=== PATIENT | female | born 1990 | race Caucasian/White ===

== ENCOUNTER 2018-12-27 08:42 | Emergency (ER) | payer OTHER ==
[~2018-12-27] VITALS: Ht 162.6 cm; Wt 65.8 kg
--- NOTE | 2018-12-27 09:16 | PHYS DOC ---
Past Medical History Past Medical History: No Pertinent History Past Surgical History: No Surgical History Alcohol Use: None Drug Use: None Adult General Chief Complaint Chief Complaint: OTHER COMPLAINTS HPI HPI 28-year-old female presents to ER via POV with concerns for as she has taken multiple home tests which were positive. Patient states she has had a tubal ligation in 2014 however and 2017 she had intermittent an ectopic preg. which due to complications terminated and she was given methotrexate 2. Patient denies having D&C and following that . Patient's LMP was october. She reports she has had bilateral breast tenderness denying discharge as well as intermittent nausea and vomiting. Patient denies being on control. She denies any urinary or vaginal symptoms- denies concerns for STDs. Patient reports she is 6 para 4 without including this possible preg desiree. She denies any abdominal pain, fever, Review of Systems Review of Systems Constitutional: Denies fever or chills [] Eyes: Denies change in visual acuity, redness, or eye pain [] HENT: Denies nasal congestion or sore throat [] Respiratory: Denies cough or shortness of breath [] Cardiovascular: No additional information not addressed in HPI [] GI: Denies abdominal pain, bloody stools or diarrhea. Reports intermittent N/V : Denies urinary or vaginal sxs Musculoskeletal: Denies back pain or joint pain [] Integument: Denies rash or skin lesions [] Neurologic: Denies headache, focal weakness or sensory changes [] All other systems were reviewed and found to be within normal limits, except as documented in this note. Allergies Allergies Allergies Coded Allergies Type Severity Reaction Last Updated Verified No Known Drug Allergies 09/21/13 No Physical Exam Physical Exam Constitutional: Well developed, well nourished, no acute distress, non-toxic appearance. [] HENT: Normocephalic, atraumatic, oropharynx moist, nose normal. [] Eyes: Pupils equal, conjunctiva normal, no discharge. [] Neck: Normal range of motion, supple, no stridor. [] Cardiovascular: Heart rate regular rhythm, no murmur [] Lungs & Thorax: Bilateral breath sounds clear to auscultation. Resp. equal/nonlabored Abdomen: Bowel sounds normal, soft- no distention or rigidity, no tenderness, no masses, no pulsatile masses. [] Skin: Warm, dry, no erythema, no rash. [] Back: No tenderness, no CVA tenderness. [] Neurologic: Alert and oriented X 3, normal motor function, normal sensory function, no focal deficits noted. [] Psychologic: Affect normal, judgement normal, mood normal. [] Current Patient Data Vital Signs Vital Signs Date Time Temp Pulse Resp B/P (MAP) Pulse Ox O2 Delivery O2 Flow Rate FiO2 12/27/18 13:00 75 16 128/64 (85) 99 Room Air 12/27/18 08:49 98.3 98.3 Lab Values Laboratory Tests Test 12/27/18 08:49 12/27/18 10:15 Urine Collection Type Unknown Urine Color Yellow Urine Clarity Clear Urine pH 5.5 Urine Specific [place] 1.025 Urine Protein Negative mg/dL (NEG-TRACE) Urine Glucose (UA) Negative mg/dL (NEG) Urine Ketones (Stick) Negative mg/dL (NEG) Urine Blood Trace (NEG) Urine Nitrite Negative (NEG) Urine Bilirubin Negative (NEG) Urine Urobilinogen Dipstick 0.2 mg/dL (0.2 mg/dL) Urine Leukocyte Esterase Negative (NEG) Urine RBC 1-2 /HPF (0-2) Urine WBC 5-10 /HPF (0-4) Urine Squamous Epithelial Cells Mod /LPF Urine Bacteria Moderate /HPF (0-FEW) Urine Mucus Mod /LPF White Blood Count 6.4 x10^3/uL (4.0-11.0) Red Blood Count 4.37 x10^6/uL (3.50-5.40) Hemoglobin 14.8 g/dL (12.0-15.5) Hematocrit 43.8 % (36.0-47.0) Mean Corpuscular Volume 100 fL (79-100) Mean Corpuscular Hemoglobin 34 pg (25-35) Mean Corpuscular Hemoglobin Concent 34 g/dL (31-37) Red Cell Distribution Width 12.6 % (11.5-14.5) Platelet Count 192 x10^3/uL (140-400) Neutrophils (%) (Auto) 58 % (31-73) Lymphocytes (%) (Auto) 34 % (24-48) Monocytes (%) (Auto) 6 % (0-9) Eosinophils (%) (Auto) 2 % (0-3) Basophils (%) (Auto) 0 % (0-3) Neutrophils # (Auto) 3.7 x10^3uL (1.8-7.7) Lymphocytes # (Auto) 2.2 x10^3/uL (1.0-4.8) Monocytes # (Auto) 0.4 x10^3/uL (0.0-1.1) Eosinophils # (Auto) 0.1 x10^3/uL (0.0-0.7) Basophils # (Auto) 0.0 x10^3/uL (0.0-0.2) Maternal Serum HCG Beta Subunit 29 mIU/mL (0-5) H Sodium Level 140 mmol/L (136-145) Potassium Level 4.2 mmol/L (3.5-5.1) Chloride Level 105 mmol/L (98-107) Carbon Dioxide Level 28 mmol/L (21-32) Anion Gap 7 (6-14) Blood Urea Nitrogen 9 mg/dL (7-20) Creatinine 0.6 mg/dL (0.6-1.0) Estimated GFR (Cockcroft-Gault) 119.0 Glucose Level 100 mg/dL (70-99) H Calcium Level 9.0 mg/dL (8.5-10.1) Laboratory Tests 12/27/18 10:15 Laboratory Tests 12/27/18 10:15 Microbiology 12/27/18 Urine Culture - Final, Complete 12/27/18 Urine Culture Result 1 (OMAYRA) - Final, Complete EKG EKG [] Radiology/Procedures Radiology/Procedures []PROCEDURE: OB < 14 WKS Obstetrical ultrasound, 12/27/2018: HISTORY: Positive test, previous tubal ligation Transabdominal and transvaginal scans were obtained. The uterus measures 8.8 x 5.6 x 4.7 cm. There are 2 small adjacent fluid collections in the central uterine cavity. One of these is rounded and measures 5 mm in diameter and demonstrates an echogenic rim. This may be a very early gestational sac of approximately 5 weeks gestational age. There is an adjacent small elongated fluid collection measuring 4 x 10 mm. The uterus is otherwise unremarkable. The ovaries are of normal size. There are a couple of subcentimeter follicular cysts in the left ovary. There is a small predominantly cystic structure in the right adnexa along the posterior aspect of the ovary. It measures approximately 2 cm in greatest diameter. There is a 7 mm echogenic structure along its inner wall. The appearance raises the possibility of an ectopic , although no cardiac activity is seen within this echogenic structure. The rim of this cystic process is not hypervascular. The adnexal regions are otherwise unremarkable. No free fluid is evident in the pelvis. IMPRESSION: 1. Small fluid collections in the central uterine cavity raising the possibility of an early IUP with minimal adjacent subchorionic hemorrhage. A pseudogestational sac related to an ectopic cannot be excluded. 2. Small complex cystic structure adjacent to the right ovary with diagnostic considerations including an ectopic or complicated exophytic ovarian cyst. Sonographic follow-up and correlation with serial hCG titers is suggested. Electronically signed by: Jamal Brooks MD (12/27/2018 1:06 PM) [facility] DICTATED and SIGNED BY: JAMAL BROOKS MD DATE: 12/27/18 1306 Course & Med Decision Making Course & Med Decision Making Pertinent Labs and Imaging studies reviewed. (See chart for details) 1326: Spoke with Dr. Reeder, director of early childhood education lamination operator and discussed patient's case and test results- discussed ultrasound report and he is wanting patient to be seen at his clinic on for repeat hCG Quant level as today's level is 29. This phone call was discussed with patient along with test results. She continues to deny any abdominal pain or vaginal discharge/reading. Patient had original appointment scheduled for 11/22. Advised patient she would need to be seen in 48 hours for the repeat lab and further evaluation by LIQUEFACTION SUPERVISOR. At time of discussion pt was in no distress- she was anxious as her husb. and child have been in [facility] waiting for her to be discharged. Went to pt's room to discuss phone call further with pt along with discharge instructions and pt was not in her room and was not located in [facility]. Attempts to call phone numbers in pt's demographic info were not working numbers. Pt left ER without discharge paperwork. Dragon Disclaimer Dragon Disclaimer This electronic medical record was generated, in whole or in part, using a voice recognition dictation system. Departure Departure Impression: Primary Impression: Additional Impression: Ectopic Disposition: HOME, SELF-CARE Condition: STABLE Referrals: KIKI REEDER Jr, MD (PCP) Patient Instructions: Ectopic Additional Instructions: As discussed it is a concern that you have an ectopic . Your hCG quantitative level was 29. You should be seen in Dr. Reeder's office on for recheck of your HCG quantitative level. Return to Emergency Department with any concerns. Problem Qualifiers AGA ALLEN APRN Dec 27, 2018 09:16
[2018-12-27 09:21] LABS: BILIRUBIN,URINE NEGATIVE (NEG); CLARITY,URINE CLEAR; COLOR,URINE YELLOW; NITRITE,URINE NEGATIVE (NEG); PH,URINE 5.5; PROTEIN,URINE NEGATIVE (NEG-TRACE); UROBILINOGEN,URINE 0.2 mg/dL (0.2 mg/dL)
[2018-12-27 09:37] LABS: SQUAMOUS EPITHELIAL CELL,UR MOD /LPF
[2018-12-27 09:38] LABS: BACTERIA,URINE MODERATE /HPF (0-FEW)
[2018-12-27 10:31] LABS: BASO % 0 % (0-3); EOS # 0.1 x10^3/uL (0.0-0.7); EOS % 2 % (0-3); HEMATOCRIT 43.8 % (36.0-47.0); HEMOGLOBIN 14.8 g/dL (12.0-15.5); LYMPH # 2.2 x10^3/uL (1.0-4.8); LYMPH % 34 % (24-48); MEAN CORPUSCULAR HEMOGLOBIN 34 pg (25-35); MEAN CORPUSCULAR HGB CONC 34 g/dL (31-37); MEAN CORPUSCULAR VOLUME 100 fL (79-100); MONO # 0.4 x10^3/uL (0.0-1.1); MONO % 6 % (0-9); NEUT # 3.7 x10^3uL (1.8-7.7); NEUT % 58 % (31-73); PLATELET COUNT 192 x10^3/uL (140-400); RED BLOOD COUNT 4.37 x10^6/uL (3.50-5.40); RED CELL DISTRIBUTION WIDTH 12.6 % (11.5-14.5); WHITE BLOOD COUNT 6.4 x10^3/uL (4.0-11.0)
[2018-12-27 10:37] LABS: CREATININE 0.6 mg/dL (0.6-1.0); POTASSIUM 4.2 mmol/L (3.5-5.1)
[2018-12-27 13:00] VITALS: BP 128/64
--- NOTE | 2018-12-27 13:09 | RAD ---
Obstetrical ultrasound, 12/27/2018: HISTORY: Positive test, previous tubal ligation Transabdominal and transvaginal scans were obtained. The uterus measures 8.8 x 5.6 x 4.7 cm. There are 2 small adjacent fluid collections in the central uterine cavity. One of these is rounded and measures 5 mm in diameter and demonstrates an echogenic rim. This may be a very early gestational sac of approximately 5 weeks gestational age. There is an adjacent small elongated fluid collection measuring 4 x 10 mm. The uterus is otherwise unremarkable. The ovaries are of normal size. There are a couple of subcentimeter follicular cysts in the left ovary. There is a small predominantly cystic structure in the right adnexa along the posterior aspect of the ovary. It measures approximately 2 cm in greatest diameter. There is a 7 mm echogenic structure along its inner wall. The appearance raises the possibility of an ectopic , although no cardiac activity is seen within this echogenic structure. The rim of this cystic process is not hypervascular. The adnexal regions are otherwise unremarkable. No free fluid is evident in the pelvis. IMPRESSION: 1. Small fluid collections in the central uterine cavity raising the possibility of an early IUP with minimal adjacent subchorionic hemorrhage. A pseudogestational sac related to an ectopic cannot be excluded. 2. Small complex cystic structure adjacent to the right ovary with diagnostic considerations including an ectopic or complicated exophytic ovarian cyst. Sonographic follow-up and correlation with serial hCG titers is suggested. Electronically signed by: Jamal Brooks MD (12/27/2018 1:06 PM) [facility] [place]
== END 2018-12-27 14:01 | disposition home or self-care (01) ==
LOC: ER 08:42
DX: O00.90 Unspecified ectopic pregnancy without intrauterine pregnancy (principal); O34.81 Maternal care for other abnormalities of pelvic organs, first trimester; N83.291 Other ovarian cyst, right side; N83.292 Other ovarian cyst, left side; Z98.51 Tubal ligation status; Z3A.01 Less than 8 weeks gestation of pregnancy
CPT/HCPCS: 36415; 76801; 80048; 81001; 84702; 85025; 87086; 99284-25

== ENCOUNTER 2019-01-04 10:43 | Emergency (ER) | payer OTHER ==
[~2019-01-04] VITALS: Ht 162.6 cm; Wt 61.2 kg
[2019-01-04 11:25] LABS: BILIRUBIN,URINE NEGATIVE (NEG); CLARITY,URINE CLEAR; COLOR,URINE YELLOW; NITRITE,URINE NEGATIVE (NEG); PROTEIN,URINE NEGATIVE (NEG-TRACE)
[2019-01-04 11:27] LABS: SQUAMOUS EPITHELIAL CELL,UR MANY /LPF
[2019-01-04 11:28] LABS: BACTERIA,URINE FEW /HPF (0-FEW); RBC,URINE OCC /HPF (0-2); WBC,URINE OCC /HPF (0-4)
--- NOTE | 2019-01-04 11:54 | PHYS DOC ---
Past Medical History Past Medical History: No Pertinent History, Other Additional Past Medical Histor: ectopic (MUTUNGA,PATIENCE TENNIS COACH) Past Surgical History: Tubal ligation (MUTUNGA,PATIENCE TENNIS COACH) Alcohol Use: Occasionally Drug Use: None (MUTUNGA,PATIENCE TENNIS COACH) Adult General Chief Complaint Chief Complaint: ABDOMINAL PAIN IN HPI HPI Patient is a 28 year old female 7 para 4, (1 miscarriage, 1 ectopic ), who presents to the ED today complaining of 5 out of 10 right lower quadrant abdominal pain for 2 days. Patient describes the pain like a sensation she is having a menstrual cycle. Denies any vaginal bleeding. She states her last menstrual cycle was sometimes at the end of October, she states she's done multiple test and they were positive, she states she's had a tubal ligation with rings that were used to tie her tubes. She states she's been before with her tubes tied though she states she has been informed her right ring moved up and is no longer tying her tubes well. She states she was seen in the ED on December 27, 2018 but did not wait for her results, she states she checked on the patient portal and it showed she was with her tubes tied and there were concerns for ectopic . She states she followed up with Dr. Reeder today and was sent to the ED to get a pelvic ultrasound and a beta hCG. I spoke with Dr. Reeder he, states patient he saw patient yesterday in the clinic, he states patient had a beta hCG of 29 on December 27 2018 when she was seen in the ED. He states it went up to 66. He states he had already talked to patient and requested her to come weekly for beta hCG checks, he states was also planning to do follow-up pelvic ultrasounds as well. He states typically with this condition of possible ectopic or maybe intrauterine they have to monitor the beta hCGs to see if they get anywhere close to [id number] and he rule out a chance there could be an IUP before they do anything area Patient is in no distress, when I went to evaluate her she was actually talking and laughing on the phone. She states she is concerned she has an ectopic and no one is doing anything to fix it. Patient herself states Dr. Reeder is not doing this right. She states the last time she had an ectopic they did beta-hCG is for 4 days and after that they can give her some methotrexate. Informed patient we in the hospital have to follow recommendation by the BLUE LINE TRIMMER. Today's Beta Hcg 230, + urine hcg. HCT and HBG are normal Please see Ultrasound results which were discussed with Dr. Reeder. He requested she gets discharged and f/u with him in 1 week for beta hcg because we can not r/o if this is ectopic or IUP or both. (PATIENCE PATEL APRN) Review of Systems Review of Systems Constitutional: Denies fever or chills [] Eyes: Denies change in visual acuity, redness, or eye pain [] HENT: Denies nasal congestion or sore throat [] Respiratory: Denies cough or shortness of breath [] Cardiovascular: No additional information not addressed in HPI [] GI: Reports right lower quadrant abdominal pain, reports positive test , denies nausea, vomiting, bloody stools or diarrhea, denies vaginal bleeding[] : Denies dysuria or hematuria [] Musculoskeletal: Denies back pain or joint pain [] Integument: Denies rash or skin lesions [] Neurologic: Denies headache, focal weakness or sensory changes [] All other systems were reviewed and found to be within normal limits, except as documented in this note. (PATIENCE PATEL APRN) Allergies Allergies Allergies Coded Allergies Type Severity Reaction Last Updated Verified No Known Drug Allergies 09/21/13 No (OSCAR MARTINEZ MD) Physical Exam Physical Exam Constitutional: Well developed, well nourished, no acute distress, non-toxic appearance. [] HENT: Normocephalic, atraumatic, bilateral external ears normal, oropharynx moist, no oral exudates, nose normal. [] Eyes: PERRLA, EOMI, conjunctiva normal, no discharge. [] Neck: Normal range of motion, no tenderness, supple, no stridor. [] Cardiovascular:Heart rate regular rhythm, no murmur [] Lungs & Thorax: Bilateral breath sounds clear to auscultation [] Abdomen: Bowel sounds normal, soft, no tenderness, no masses, no pulsatile masses. [] Pelvic exam External pelvic appears normal, cervix edition loss, closed, no CMT, slight right adnexal tenderness during exam, no bleeding, small amount of white discharge in the vaginal vault. Skin: Warm, dry, no erythema, no rash. [] Back: No tenderness, no CVA tenderness. [] Extremities: No tenderness, no cyanosis, no clubbing, ROM intact, no edema. [] Neurologic: Alert and oriented X 3, normal motor function, normal sensory function, no focal deficits noted. [] Psychologic: Affect normal, judgement normal, mood normal. [] (PATIENCE PATEL APRN) Current Patient Data Vital Signs Vital Signs Date Time Temp Pulse Resp B/P (MAP) Pulse Ox O2 Delivery O2 Flow Rate FiO2 01/04/19 13:30 82 15 106/63 (77) 99 Room Air 01/04/19 11:03 98.1 98.1 (OSCAR MARTINEZ MD) Lab Values Laboratory Tests Test 01/04/19 10:48 01/04/19 11:05 01/04/19 11:49 Urine Collection Type Unknown Urine Color Yellow Urine Clarity Clear Urine pH 7.0 Urine Specific [place] 1.015 Urine Protein Negative mg/dL (NEG-TRACE) Urine Glucose (UA) Negative mg/dL (NEG) Urine Ketones (Stick) Negative mg/dL (NEG) Urine Blood Negative (NEG) Urine Nitrite Negative (NEG) Urine Bilirubin Negative (NEG) Urine Urobilinogen Dipstick 1.0 mg/dL (0.2 mg/dL) Urine Leukocyte Esterase Negative (NEG) Urine RBC Occ /HPF (0-2) Urine WBC Occ /HPF (0-4) Urine Squamous Epithelial Cells Many /LPF Urine Bacteria Few /HPF (0-FEW) Urine Mucus Marked /LPF POC Urine HCG, Qualitative Hcg positive (Negative) White Blood Count 5.1 x10^3/uL (4.0-11.0) Red Blood Count 4.10 x10^6/uL (3.50-5.40) Hemoglobin 13.9 g/dL (12.0-15.5) Hematocrit 40.5 % (36.0-47.0) Mean Corpuscular Volume 99 fL (79-100) Mean Corpuscular Hemoglobin 34 pg (25-35) Mean Corpuscular Hemoglobin Concent 34 g/dL (31-37) Red Cell Distribution Width 12.2 % (11.5-14.5) Platelet Count 177 x10^3/uL (140-400) Neutrophils (%) (Auto) 43 % (31-73) Lymphocytes (%) (Auto) 48 % (24-48) Monocytes (%) (Auto) 6 % (0-9) Eosinophils (%) (Auto) 3 % (0-3) Basophils (%) (Auto) 0 % (0-3) Neutrophils # (Auto) 2.2 x10^3uL (1.8-7.7) Lymphocytes # (Auto) 2.4 x10^3/uL (1.0-4.8) Monocytes # (Auto) 0.3 x10^3/uL (0.0-1.1) Eosinophils # (Auto) 0.1 x10^3/uL (0.0-0.7) Basophils # (Auto) 0.0 x10^3/uL (0.0-0.2) Maternal Serum HCG Beta Subunit 280 mIU/mL (0-5) H Laboratory Tests 01/04/19 11:49 (OSCAR MARTINEZ MD) EKG EKG [] (PATIENCE PATEL APRN) Radiology/Procedures Radiology/Procedures []PROCEDURE: OB <14 WKS W/TV OB <14 WKS W/TV History: Right abdominal pain, possible ectopic Comparison: December 27, 2018 Findings: Multiple transabdominal sonographic images of the pelvis are submitted. Uterus measured 8.6 x 4.6 cm x 6.8 cm. Ovaries are poorly distinguished. Transvaginal ultrasound: Multiple transvaginal sonographic images of pelvis are submitted. There is a small focus of hypoechogenicity of the uterus about 0.6 x 0.8 x 0.6 cm. Another previously seen small focus of hypoechogenicity of the uterus is not demonstrated on this exam. Left ovary measured 2 x 2.4 x 1.7 cm with normal low resistance vascularity. Right ovary measured 3.4 x 2 x 2.5 cm with normal low resistance vascularity. There is again focus of different echogenicity of the right ovary up to about 1.6 x 1.5 x 1.8 cm, smaller area of central hypoechogenicity. This is associated with some associated vascularity on color Doppler imaging. There is again another focus of hypoechogenicity adjacent to the right ovary, central area of hyperechogenicity with a somewhat longitudinal orientation, about 0.66 cm length. There is no demonstrable cardiac activity if this is a pole. Overall dimension of this area of primarily hypoechoic lesion is about 2.1 x 1.7 x 2.1 cm, previous maximal dimension about 1.6 x 1.7 x 1.9 cm. There is mild free fluid in the posterior cul-de-sac and extending to the right adnexal region. Impression: 1. There is again hypoechoic lesion adjacent to the right ovary with ectopic in the differential considerations, measures somewhat larger than previously, internal linear focus of echogenicity which could be a pole although there is no demonstrable cardiac activity if this is indeed a pole. Focus of echogenicity could be nonspecific debris. There is minimal free fluid in the right adnexal region and posterior cul-de-sac. There is another focus of different echogenicity of the right ovary which may be a corpus luteal cyst. There is again small focus of hypoechogenicity of the uterus, although not significantly larger as would be expected if this is indeed a small gestational sac. One of the previously seen small foci of hypoechogenicity of the uterus is not demonstrated on this exam. Electronically signed by: Bin Rivera MD (01/04/2019 2:05 PM) [id number] DICTATED and SIGNED BY: BIN RIVERA MD DATE: 01/04/19 4112 (PATIENCE PATEL APRN) Course & Med Decision Making Course & Med Decision Making Pertinent Labs and Imaging studies reviewed. (See chart for details) See history of present illness (PATIENCE PATEL APRN) Course & Med Decision Making Staff Physician Addendum: I was working in the ER during the course of this patient's visit. I was available for consultation as needed, but I was not directly involved in the care of this patient. (OSCAR MARTINEZ MD) Dragon Disclaimer Dragon Disclaimer This electronic medical record was generated, in whole or in part, using a voice recognition dictation system. (PATIENCE PATEL APRN) Departure Departure Impression: Primary Impression: Abdominal pain affecting Additional Impression: Ectopic Disposition: 01 HOME, SELF-CARE Condition: STABLE Referrals: KIKI REEDER Jr, MD (PCP) Please follow up with him in 1 week for Beta HCG Patient Instructions: Abdominal Pain During Additional Instructions: You were seen for abdominal pain. Your Beta HCG is 280, as discussed please follow up with Dr. Reeder in 1 week for Beta HCG. Please return to the Ed if symptoms worsen Problem Qualifiers Additional Impression: Ectopic Location of ectopic : unspecified location Intrauterine status: unspecified Qualified Codes: O00.90 - Unspecified ectopic without intrauterine PATIENCE PATEL APRN Jan 04, 2019 11:54 OSCAR MARTINEZ MD Jan 06, 2019 10:44
[2019-01-04 12:01] LABS: BASO % 0 % (0-3); EOS # 0.1 x10^3/uL (0.0-0.7); EOS % 3 % (0-3); HEMATOCRIT 40.5 % (36.0-47.0); HEMOGLOBIN 13.9 g/dL (12.0-15.5); LYMPH # 2.4 x10^3/uL (1.0-4.8); LYMPH % 48 % (24-48); MEAN CORPUSCULAR HEMOGLOBIN 34 pg (25-35); MEAN CORPUSCULAR HGB CONC 34 g/dL (31-37); MEAN CORPUSCULAR VOLUME 99 fL (79-100); MONO # 0.3 x10^3/uL (0.0-1.1); MONO % 6 % (0-9); NEUT # 2.2 x10^3uL (1.8-7.7); NEUT % 43 % (31-73); PLATELET COUNT 177 x10^3/uL (140-400); RED CELL DISTRIBUTION WIDTH 12.2 % (11.5-14.5); WHITE BLOOD COUNT 5.1 x10^3/uL (4.0-11.0)
[2019-01-04 13:30] VITALS: BP 106/63
--- NOTE | 2019-01-04 14:07 | RAD ---
OB <14 WKS W/TV History: Right abdominal pain, possible ectopic Comparison: December 27, 2018 Findings: Multiple transabdominal sonographic images of the pelvis are submitted. Uterus measured 8.6 x 4.6 cm x 6.8 cm. Ovaries are poorly distinguished. Transvaginal ultrasound: Multiple transvaginal sonographic images of pelvis are submitted. There is a small focus of hypoechogenicity of the uterus about 0.6 x 0.8 x 0.6 cm. Another previously seen small focus of hypoechogenicity of the uterus is not demonstrated on this exam. Left ovary measured 2 x 2.4 x 1.7 cm with normal low resistance vascularity. Right ovary measured 3.4 x 2 x 2.5 cm with normal low resistance vascularity. There is again focus of different echogenicity of the right ovary up to about 1.6 x 1.5 x 1.8 cm, smaller area of central hypoechogenicity. This is associated with some associated vascularity on color Doppler imaging. There is again another focus of hypoechogenicity adjacent to the right ovary, central area of hyperechogenicity with a somewhat longitudinal orientation, about 0.66 cm length. There is no demonstrable cardiac activity if this is a pole. Overall dimension of this area of primarily hypoechoic lesion is about 2.1 x 1.7 x 2.1 cm, previous maximal dimension about 1.6 x 1.7 x 1.9 cm. There is mild free fluid in the posterior cul-de-sac and extending to the right adnexal region. Impression: 1. There is again hypoechoic lesion adjacent to the right ovary with ectopic in the differential considerations, measures somewhat larger than previously, internal linear focus of echogenicity which could be a pole although there is no demonstrable cardiac activity if this is indeed a pole. Focus of echogenicity could be nonspecific debris. There is minimal free fluid in the right adnexal region and posterior cul-de-sac. There is another focus of different echogenicity of the right ovary which may be a corpus luteal cyst. There is again small focus of hypoechogenicity of the uterus, although not significantly larger as would be expected if this is indeed a small gestational sac. One of the previously seen small foci of hypoechogenicity of the uterus is not demonstrated on this exam. Electronically signed by: Darius Barillas MD (01/04/2019 2:05 PM) [id number]
== END 2019-01-04 14:40 | disposition home or self-care (01) ==
LOC: ER 10:43
DX: O00.90 Unspecified ectopic pregnancy without intrauterine pregnancy (principal); R10.31 Right lower quadrant pain; Z98.51 Tubal ligation status
CPT/HCPCS: 36415; 76801; 76817; 81001; 81025; 84702; 85025; 99284-25

== ENCOUNTER 2019-01-09 13:19 | Emergency (ER) | payer OTHER ==
[~2019-01-09] VITALS: Ht 162.6 cm; Wt 61.2 kg
[2019-01-09] MEDS ORDERED: ONDANSETRON PF 4 MG/2 ML VIAL. IV ONE (13:45)
[2019-01-09] MEDS ORDERED: IV NORMAL SALINE 1000ML BAG 1,000 ML IV ONE (13:45)
[2019-01-09] MEDS ORDERED: ACETAMINOPHEN 500 MG TABLET PO ONE (13:45)
--- NOTE | 2019-01-09 13:53 | PHYS DOC ---
Past Medical History Past Medical History: No Pertinent History Additional Past Medical Histor: ectopic Past Surgical History: Tubal ligation Alcohol Use: None Drug Use: None Adult General Chief Complaint Chief Complaint: VAGINAL BLEEDING HPI HPI Patient is a 28 year old female 7 para 4, (1 miscarriage, 1 ectopic ), who presents to the ED today complaining of vaginal bleeding and abdominal cramping that began early this morning. She states it began as spotting and went into a light bleeding notably when she wipes herself. She states her last menstrual cycle was sometimes at the end of October, she states she's done multiple test and they were positive, she states she's had a tubal ligation with rings that were used to tie her tubes but one of them moved and currently open. She states she's been before because of this open tube. She states insurance will not pay for another tubal ligation. She follows up with Dr. Reeder who i had spoken to on 01/04/2019 and he requested patient to have a repeat beta hcg in a week. He stated typically with this condition of possible ectopic or maybe intrauterine they have to monitor the beta hCGs to see if they get anywhere close to [id number] and then rule out a chance there could be an IUP before they decide what to do. Beta hCG 571 up from 280 on 01/04/2019. CBC CMP with no acute findings. UA with no infection. Blood group B+ OB ultrasound results -There is a persistent focus of abnormal hypoechogenicity with internal area of hyperechogenicity adjacent to the right ovary suspicious for sequela of ectopic given persistence, no demonstrable cardiac activity if the focus of echogenicity internally represents a pole. Previously demonstrated hypoechoic lesion of the uterus is no longer visualized. There is minimal free fluid eccentric to the right adnexal region. Called Dr. Reeder he states he is coming to take patient to surgery. I went to talk to patient and let her know she will be going to surgery today. The chest as to argue stating the last time she had a similar issue she was given methotrexate. Informed patient she can talk to Dr. Reeder about this but he is planning on surgery. Dr. Reeder came to talk to patient about the plan. He states he has fired this patient because she is arguing with him and will not accept the plan of care he has planned. Nursing stafff informed me patient signed out AMA. Patient is alert and oriented and able to make her own decisions. Review of Systems Review of Systems Constitutional: Denies fever or chills [] Eyes: Denies change in visual acuity, redness, or eye pain [] HENT: Denies nasal congestion or sore throat [] Respiratory: Denies cough or shortness of breath [] Cardiovascular: No additional information not addressed in HPI [] GI: Reports abdominal cramping and vaginal bleeding, denies nausea, vomiting, bloody stools or diarrhea [] : Denies dysuria or hematuria [] Musculoskeletal: Denies back pain or joint pain [] Integument: Denies rash or skin lesions [] Neurologic: Denies headache, focal weakness or sensory changes [] All other systems were reviewed and found to be within normal limits, except as documented in this note. Current Medications Current Medications Current Medications Medications (Trade) Dose Ordered Sig/Norm Start Time Stop Time Status Last Admin Dose Admin Acetaminophen (Tylenol) 500 mg 1X ONCE 01/09/19 13:45 01/09/19 13:50 DC 01/09/19 13:59 500 MG Morphine Sulfate (Morphine Sulfate) 1 mg 1X ONCE 01/09/19 15:30 01/09/19 15:31 DC 01/09/19 15:36 1 MG Ondansetron HCl (Zofran) 4 mg 1X ONCE 01/09/19 13:45 01/09/19 13:51 DC Oxytocin (Pitocin) 10 unit STK-MED ONCE 01/09/19 16:14 01/09/19 17:14 DC Sodium Chloride 1,000 ml @ 1,000 mls/hr 1X ONCE 01/09/19 13:45 01/09/19 14:44 DC 01/09/19 13:59 1,000 MLS/HR Vasopressin (Vasostrict) 20 unit STK-MED ONCE 01/09/19 16:14 01/09/19 17:15 DC Allergies Allergies Allergies Coded Allergies Type Severity Reaction Last Updated Verified No Known Drug Allergies 09/21/13 No Physical Exam Physical Exam Constitutional: Well developed, well nourished, no acute distress, non-toxic appearance. [] HENT: Normocephalic, atraumatic, bilateral external ears normal, oropharynx moist, no oral exudates, nose normal. [] Eyes: PERRLA, EOMI, conjunctiva normal, no discharge. [] Neck: Normal range of motion, no tenderness, supple, no stridor. [] Cardiovascular:Heart rate regular rhythm, no murmur [] Lungs & Thorax: Bilateral breath sounds clear to auscultation [] Abdomen: Bowel sounds normal, soft, no tenderness, no masses, no pulsatile masses. [] Pelvic exam External pelvic appears normal, cervix is visualized, small amount of bright red blood in the cervical OS, no adnexal tenderness. Slight CMT. Skin: Warm, dry, no erythema, no rash. [] Back: No tenderness, no CVA tenderness. [] Extremities: No tenderness, no cyanosis, no clubbing, ROM intact, no edema. [] Neurologic: Alert and oriented X 3, normal motor function, normal sensory function, no focal deficits noted. [] Psychologic: Affect normal, judgement normal, mood normal. [] Current Patient Data Vital Signs Vital Signs Date Time Temp Pulse Resp B/P (MAP) Pulse Ox O2 Delivery O2 Flow Rate FiO2 01/09/19 15:36 18 99 Room Air 01/09/19 13:41 97.5 83 110/56 (74) 97.5 Lab Values Laboratory Tests Test 01/09/19 13:50 01/09/19 15:15 White Blood Count 6.4 x10^3/uL (4.0-11.0) Red Blood Count 3.94 x10^6/uL (3.50-5.40) Hemoglobin 13.3 g/dL (12.0-15.5) Hematocrit 38.6 % (36.0-47.0) Mean Corpuscular Volume 98 fL (79-100) Mean Corpuscular Hemoglobin 34 pg (25-35) Mean Corpuscular Hemoglobin Concent 35 g/dL (31-37) Red Cell Distribution Width 12.4 % (11.5-14.5) Platelet Count 181 x10^3/uL (140-400) Neutrophils (%) (Auto) 54 % (31-73) Lymphocytes (%) (Auto) 39 % (24-48) Monocytes (%) (Auto) 4 % (0-9) Eosinophils (%) (Auto) 2 % (0-3) Basophils (%) (Auto) 1 % (0-3) Neutrophils # (Auto) 3.5 x10^3uL (1.8-7.7) Lymphocytes # (Auto) 2.5 x10^3/uL (1.0-4.8) Monocytes # (Auto) 0.3 x10^3/uL (0.0-1.1) Eosinophils # (Auto) 0.1 x10^3/uL (0.0-0.7) Basophils # (Auto) 0.1 x10^3/uL (0.0-0.2) Maternal Serum HCG Beta Subunit 571 mIU/mL (0-5) H Sodium Level 143 mmol/L (136-145) Potassium Level 3.6 mmol/L (3.5-5.1) Chloride Level 106 mmol/L (98-107) Carbon Dioxide Level 26 mmol/L (21-32) Anion Gap 11 (6-14) Blood Urea Nitrogen 9 mg/dL (7-20) Creatinine 1.0 mg/dL (0.6-1.0) Estimated GFR (Cockcroft-Gault) 66.0 BUN/Creatinine Ratio 9 (6-20) Glucose Level 95 mg/dL (70-99) Calcium Level 8.5 mg/dL (8.5-10.1) Total Bilirubin 0.2 mg/dL (0.2-1.0) Aspartate Amino Transferase (AST) 12 U/L (15-37) L Alanine Aminotransferase (ALT) 12 U/L (14-59) L Alkaline Phosphatase 56 U/L (46-116) Total Protein 7.0 g/dL (6.4-8.2) Albumin 3.8 g/dL (3.4-5.0) Albumin/Globulin Ratio 1.2 (1.0-1.7) Ethyl Alcohol Level < 10 mg/dL (0-10) Urine Collection Type Unknown Urine Color Yellow Urine Clarity Clear Urine pH 6.5 Urine Specific [place] 1.025 Urine Protein Negative mg/dL (NEG-TRACE) Urine Glucose (UA) Negative mg/dL (NEG) Urine Ketones (Stick) Negative mg/dL (NEG) Urine Blood Large (NEG) Urine Nitrite Negative (NEG) Urine Bilirubin Negative (NEG) Urine Urobilinogen Dipstick 1.0 mg/dL (0.2 mg/dL) Urine Leukocyte Esterase Negative (NEG) Urine RBC 11-20 /HPF (0-2) Urine WBC Rare /HPF (0-4) Urine Squamous Epithelial Cells Many /LPF Urine Bacteria Few /HPF (0-FEW) Urine Mucus Marked /LPF Urine Opiates Screen Neg (NEG) Urine Methadone Screen Neg (NEG) Urine Barbiturates Neg (NEG) Urine Phencyclidine Screen Neg (NEG) Urine Amphetamine/Methamphetamine Neg (NEG) Urine Benzodiazepines Screen Neg (NEG) Urine Cocaine Screen Neg (NEG) Urine Cannabinoids Screen Pos (NEG) Urine Ethyl Alcohol Neg (NEG) Laboratory Tests 01/09/19 13:50 Laboratory Tests 01/09/19 13:50 EKG EKG [] Radiology/Procedures Radiology/Procedures []PROCEDURE: OB <14 WKS W/TV OB <14 WKS W/TV History: Vaginal bleeding Comparison: January 04, 2019 Findings: Multiple transabdominal sonographic images of pelvis are submitted. Uterus measured 10 x 4.4 x 5.2 cm. Previously demonstrated hypoechoic lesion of the uterus is no longer visualized. Ovaries are poorly visualized. Transvaginal ultrasound: Multiple transvaginal sonographic images of pelvis are submitted. No intrauterine gestational sac is demonstrated. Endometrium measures about 1 cm in thickness. Right ovary measured 3.4 x 1.7 x 2.6 cm. Left ovary measured 2.5 x 1.8 x 2.1 cm. There is normal color flow and low resistance vascularity of the ovaries. There is again hypoechoic lesion with internal echogenicity adjacent to the right ovary. Focus of echogenicity internally measures about 0.7 x 0.4 x 0.7 cm, fairly similar, not associated with significant hypervascularity or demonstrable cardiac activity. Overall area of hypoechogenicity measures about 1.8 x 1.5 x 1.7 cm, somewhat smaller as previously about 2.1 x 1.7 x 2.1 cm. There is again some free fluid in the right adnexal region. There are some varices of the parametrial regions bilaterally. Impression: 1. There is a persistent focus of abnormal hypoechogenicity with internal area of hyperechogenicity adjacent to the right ovary suspicious for sequela of ectopic given persistence, no demonstrable cardiac activity if the focus of echogenicity internally represents a pole. Previously demonstrated hypoechoic lesion of the uterus is no longer visualized. There is minimal free fluid eccentric to the right adnexal region. Electronically signed by: Bin Rivera MD (01/09/2019 4:18 PM) [facility] DICTATED and SIGNED BY: BIN RIVERA MD DATE: 01/09/19 1618 Course & Med Decision Making Course & Med Decision Making Pertinent Labs and Imaging studies reviewed. (See chart for details) Please see HPI Dragon Disclaimer Dragon Disclaimer This electronic medical record was generated, in whole or in part, using a voice recognition dictation system. Departure Departure Impression: Primary Impression: Ectopic Disposition: 07 AGAINST MEDICAL ADVICE Condition: STABLE Referrals: KIKI REEDER Jr, MD (PCP) Problem Qualifiers Primary Impression: Ectopic Location of ectopic : unspecified location Intrauterine status: unspecified Qualified Codes: O00.90 - Unspecified ectopic without intrauterine PATIENCE [employer] Jan 09, 2019 13:53
[2019-01-09 14:00] LABS: BASO # 0.1 x10^3/uL (0.0-0.2); BASO % 1 % (0-3); EOS # 0.1 x10^3/uL (0.0-0.7); EOS % 2 % (0-3); HEMATOCRIT 38.6 % (36.0-47.0); HEMOGLOBIN 13.3 g/dL (12.0-15.5); LYMPH # 2.5 x10^3/uL (1.0-4.8); LYMPH % 39 % (24-48); MEAN CORPUSCULAR HEMOGLOBIN 34 pg (25-35); MEAN CORPUSCULAR HGB CONC 35 g/dL (31-37); MEAN CORPUSCULAR VOLUME 98 fL (79-100); MONO # 0.3 x10^3/uL (0.0-1.1); MONO % 4 % (0-9); NEUT # 3.5 x10^3uL (1.8-7.7); NEUT % 54 % (31-73); PLATELET COUNT 181 x10^3/uL (140-400); RED BLOOD COUNT 3.94 x10^6/uL (3.50-5.40); RED CELL DISTRIBUTION WIDTH 12.4 % (11.5-14.5); WHITE BLOOD COUNT 6.4 x10^3/uL (4.0-11.0)
[2019-01-09 14:10] LABS: CALCIUM 8.5 mg/dL (8.5-10.1); POTASSIUM 3.6 mmol/L (3.5-5.1)
[2019-01-09 14:16] LABS: ALBUMIN 3.8 g/dL (3.4-5.0); ALBUMIN/GLOBULIN RATIO 1.2 (1.0-1.7); TOTAL BILIRUBIN 0.2 mg/dL (0.2-1.0)
[2019-01-09] MEDS ORDERED: MORPHINE SULFATE 2 MG/ML VIAL. IV ONE (15:30)
[2019-01-09 15:32] LABS: BILIRUBIN,URINE NEGATIVE (NEG); CLARITY,URINE CLEAR; COLOR,URINE YELLOW; NITRITE,URINE NEGATIVE (NEG); PH,URINE 6.5; PROTEIN,URINE NEGATIVE (NEG-TRACE)
[2019-01-09 15:37] LABS: BARBITURATES NEG (NEG); BENZODIAZEPINES NEG (NEG); CANNABINOIDS POS (NEG); COCAINE NEG (NEG); METHADONE NEG (NEG); OPIATES NEG (NEG); PHENCYCLIDINE NEG (NEG)
[2019-01-09 15:39] LABS: AMPHETAMINE/METHAMPHETAMINE NEG (NEG); BACTERIA,URINE FEW /HPF (0-FEW); SQUAMOUS EPITHELIAL CELL,UR MANY /LPF; WBC,URINE RARE /HPF (0-4)
[2019-01-09] MEDS ORDERED: VASOPRESSIN 20 UNIT/ML VIAL. ONE (16:14)
[2019-01-09] MEDS ORDERED: OXYTOCIN 10 UNIT/ML VIAL. ONE (16:14)
--- NOTE | 2019-01-09 16:22 | RAD ---
OB <14 WKS W/TV History: Vaginal bleeding Comparison: January 04, 2019 Findings: Multiple transabdominal sonographic images of pelvis are submitted. Uterus measured 10 x 4.4 x 5.2 cm. Previously demonstrated hypoechoic lesion of the uterus is no longer visualized. Ovaries are poorly visualized. Transvaginal ultrasound: Multiple transvaginal sonographic images of pelvis are submitted. No intrauterine gestational sac is demonstrated. Endometrium measures about 1 cm in thickness. Right ovary measured 3.4 x 1.7 x 2.6 cm. Left ovary measured 2.5 x 1.8 x 2.1 cm. There is normal color flow and low resistance vascularity of the ovaries. There is again hypoechoic lesion with internal echogenicity adjacent to the right ovary. Focus of echogenicity internally measures about 0.7 x 0.4 x 0.7 cm, fairly similar, not associated with significant hypervascularity or demonstrable cardiac activity. Overall area of hypoechogenicity measures about 1.8 x 1.5 x 1.7 cm, somewhat smaller as previously about 2.1 x 1.7 x 2.1 cm. There is again some free fluid in the right adnexal region. There are some varices of the parametrial regions bilaterally. Impression: 1. There is a persistent focus of abnormal hypoechogenicity with internal area of hyperechogenicity adjacent to the right ovary suspicious for sequela of ectopic given persistence, no demonstrable cardiac activity if the focus of echogenicity internally represents a pole. Previously demonstrated hypoechoic lesion of the uterus is no longer visualized. There is minimal free fluid eccentric to the right adnexal region. Electronically signed by: Darius Barillas MD (01/09/2019 4:18 PM) [place] [id number]
[2019-01-09 17:00] VITALS: BP 125/75
[2019-01-09] MEDS ORDERED: fentaNYL PF VIAL 100 MCG/2 ML VIAL ONE (17:04)
[2019-01-09] MEDS ORDERED: PROPOFOL 20 ML IV ONE (17:04)
[2019-01-09] MEDS ORDERED: LIDOCAINE 2% PF 5 ML VIAL. ONE (17:04)
--- NOTE | 2019-01-09 17:54 | PDOC1 ---
History and Physical Date of Admission Date of Admission DATE: 01/09/19 TIME: 17:44 Identification/Chief Complaint Chief Complaint vaginal bleeding Source Source: Patient History of Present Illness History of Present Illness 28 y/o A2 in early gestation presented to ED with c/o vaginal bleeding that started today and abd pain. She has been followed the past week with serial HCG testing. HCG 219 on 01/03, then HCG 280 on 01/04 and today HCG 540. Sono indicated free fluid with small Right adnexal lesion. Pt. was informed of the HCG level and sono results. She then began raising her voice and arguing with me about how often she should have HCG testing and she wants Methotrexate for treatment like her last ectopic in [place]. The patient was recommended to have surgery due to her clinical presentation. SHe continued to refuse and wanted to know why she didn't get Methotrexate earlier this . I explained that we needed to know where the was located and whether she would be a candidate for Methotrexate treatment. She was informed that we would not start a treament without more information as to where the was forming. The patient refused surgical care and left against medical advice. Past Surgical History Past Surgical History: Tubal Ligation Current Problem List Problem List Problems Medical Problems: (1) Ectopic Status: Acute Current Medications Current Medications Current Medications Sodium Chloride 1,000 ml @ 1,000 mls/hr 1X ONCE IV Last administered on at 13:59; Start 01/09/19 at 13:45; Stop 01/09/19 at 14:44; Status DC Ondansetron HCl (Zofran) 4 mg 1X ONCE IV ; Start 01/09/19 at 13:45; Stop at 13:51; Status DC Acetaminophen (Tylenol) 500 mg 1X ONCE PO Last administered on 01/09/19at 13:59 ; Start 01/09/19 at 13:45; Stop 01/09/19 at 13:50; Status DC Morphine Sulfate (Morphine Sulfate) 1 mg 1X ONCE IV Last administered on at 15:36; Start 01/09/19 at 15:30; Stop 01/09/19 at 15:31; Status DC Propofol 20 ml @ As Directed STK-MED ONCE IV ; Start 01/09/19 at 17:04; Stop 01/09 at 17:05; Status DC Lidocaine HCl (Lidocaine Pf 2% Vial) 5 ml STK-MED ONCE .ROUTE ; Start 01/09/19 at 17:04; Stop 01/09/19 at 17:05; Status DC Fentanyl Citrate (Fentanyl 2ml Vial) 100 mcg STK-MED ONCE .ROUTE ; Start at 17:04; Stop 01/09/19 at 17:05; Status DC Oxytocin (Pitocin) 10 unit STK-MED ONCE .ROUTE ; Start 01/09/19 at 16:14; Stop at 17:14; Status DC Vasopressin (Vasostrict) 20 unit STK-MED ONCE .ROUTE ; Start 01/09/19 at 16:14; Stop 01/09/19 at 17:15; Status DC Allergies Allergies: Coded Allergies: No Known Drug Allergies (Unverified , 09/21/13) Vitals Vitals Vital Signs Date Time Temp Pulse Resp B/P (MAP) Pulse Ox O2 Delivery O2 Flow Rate FiO2 01/09/19 15:36 18 99 Room Air 01/09/19 13:41 97.5 83 110/56 (74) 97.5 Labs Labs Laboratory Tests Test 01/09/19 13:50 01/09/19 15:15 White Blood Count 6.4 x10^3/uL (4.0-11.0) Red Blood Count 3.94 x10^6/uL (3.50-5.40) Hemoglobin 13.3 g/dL (12.0-15.5) Hematocrit 38.6 % (36.0-47.0) Mean Corpuscular Volume 98 fL (79-100) Mean Corpuscular Hemoglobin 34 pg (25-35) Mean Corpuscular Hemoglobin Concent 35 g/dL (31-37) Red Cell Distribution Width 12.4 % (11.5-14.5) Platelet Count 181 x10^3/uL (140-400) Neutrophils (%) (Auto) 54 % (31-73) Lymphocytes (%) (Auto) 39 % (24-48) Monocytes (%) (Auto) 4 % (0-9) Eosinophils (%) (Auto) 2 % (0-3) Basophils (%) (Auto) 1 % (0-3) Neutrophils # (Auto) 3.5 x10^3uL (1.8-7.7) Lymphocytes # (Auto) 2.5 x10^3/uL (1.0-4.8) Monocytes # (Auto) 0.3 x10^3/uL (0.0-1.1) Eosinophils # (Auto) 0.1 x10^3/uL (0.0-0.7) Basophils # (Auto) 0.1 x10^3/uL (0.0-0.2) Maternal Serum HCG Beta Subunit 571 mIU/mL (0-5) Sodium Level 143 mmol/L (136-145) Potassium Level 3.6 mmol/L (3.5-5.1) Chloride Level 106 mmol/L (98-107) Carbon Dioxide Level 26 mmol/L (21-32) Anion Gap 11 (6-14) Blood Urea Nitrogen 9 mg/dL (7-20) Creatinine 1.0 mg/dL (0.6-1.0) Estimated GFR (Cockcroft-Gault) 66.0 BUN/Creatinine Ratio 9 (6-20) Glucose Level 95 mg/dL (70-99) Calcium Level 8.5 mg/dL (8.5-10.1) Total Bilirubin 0.2 mg/dL (0.2-1.0) Aspartate Amino Transf (AST/SGOT) 12 U/L (15-37) Alanine Aminotransferase (ALT/SGPT) 12 U/L (14-59) Alkaline Phosphatase 56 U/L (46-116) Total Protein 7.0 g/dL (6.4-8.2) Albumin 3.8 g/dL (3.4-5.0) Albumin/Globulin Ratio 1.2 (1.0-1.7) Ethyl Alcohol Level < 10 mg/dL (0-10) Urine Collection Type Unknown Urine Color Yellow Urine Clarity Clear Urine pH 6.5 Urine Specific [place] 1.025 Urine Protein Negative mg/dL (NEG-TRACE) Urine Glucose (UA) Negative mg/dL (NEG) Urine Ketones (Stick) Negative mg/dL (NEG) Urine Blood Large (NEG) Urine Nitrite Negative (NEG) Urine Bilirubin Negative (NEG) Urine Urobilinogen Dipstick 1.0 mg/dL (0.2 mg/dL) Urine Leukocyte Esterase Negative (NEG) Urine RBC 11-20 /HPF (0-2) Urine WBC Rare /HPF (0-4) Urine Squamous Epithelial Cells Many /LPF Urine Bacteria Few /HPF (0-FEW) Urine Mucus Marked /LPF Urine Opiates Screen Neg (NEG) Urine Methadone Screen Neg (NEG) Urine Barbiturates Neg (NEG) Urine Phencyclidine Screen Neg (NEG) Urine Amphetamine/Methamphetamine Neg (NEG) Urine Benzodiazepines Screen Neg (NEG) Urine Cocaine Screen Neg (NEG) Urine Cannabinoids Screen Pos (NEG) Urine Ethyl Alcohol Neg (NEG) Laboratory Tests Test 01/09/19 13:50 01/09/19 15:15 White Blood Count 6.4 x10^3/uL (4.0-11.0) Red Blood Count 3.94 x10^6/uL (3.50-5.40) Hemoglobin 13.3 g/dL (12.0-15.5) Hematocrit 38.6 % (36.0-47.0) Mean Corpuscular Volume 98 fL (79-100) Mean Corpuscular Hemoglobin 34 pg (25-35) Mean Corpuscular Hemoglobin Concent 35 g/dL (31-37) Red Cell Distribution Width 12.4 % (11.5-14.5) Platelet Count 181 x10^3/uL (140-400) Neutrophils (%) (Auto) 54 % (31-73) Lymphocytes (%) (Auto) 39 % (24-48) Monocytes (%) (Auto) 4 % (0-9) Eosinophils (%) (Auto) 2 % (0-3) Basophils (%) (Auto) 1 % (0-3) Neutrophils # (Auto) 3.5 x10^3uL (1.8-7.7) Lymphocytes # (Auto) 2.5 x10^3/uL (1.0-4.8) Monocytes # (Auto) 0.3 x10^3/uL (0.0-1.1) Eosinophils # (Auto) 0.1 x10^3/uL (0.0-0.7) Basophils # (Auto) 0.1 x10^3/uL (0.0-0.2) Maternal Serum HCG Beta Subunit 571 mIU/mL (0-5) Sodium Level 143 mmol/L (136-145) Potassium Level 3.6 mmol/L (3.5-5.1) Chloride Level 106 mmol/L (98-107) Carbon Dioxide Level 26 mmol/L (21-32) Anion Gap 11 (6-14) Blood Urea Nitrogen 9 mg/dL (7-20) Creatinine 1.0 mg/dL (0.6-1.0) Estimated GFR (Cockcroft-Gault) 66.0 BUN/Creatinine Ratio 9 (6-20) Glucose Level 95 mg/dL (70-99) Calcium Level 8.5 mg/dL (8.5-10.1) Total Bilirubin 0.2 mg/dL (0.2-1.0) Aspartate Amino Transf (AST/SGOT) 12 U/L (15-37) Alanine Aminotransferase (ALT/SGPT) 12 U/L (14-59) Alkaline Phosphatase 56 U/L (46-116) Total Protein 7.0 g/dL (6.4-8.2) Albumin 3.8 g/dL (3.4-5.0) Albumin/Globulin Ratio 1.2 (1.0-1.7) Ethyl Alcohol Level < 10 mg/dL (0-10) Urine Collection Type Unknown Urine Color Yellow Urine Clarity Clear Urine pH 6.5 Urine Specific [place] 1.025 Urine Protein Negative mg/dL (NEG-TRACE) Urine Glucose (UA) Negative mg/dL (NEG) Urine Ketones (Stick) Negative mg/dL (NEG) Urine Blood Large (NEG) Urine Nitrite Negative (NEG) Urine Bilirubin Negative (NEG) Urine Urobilinogen Dipstick 1.0 mg/dL (0.2 mg/dL) Urine Leukocyte Esterase Negative (NEG) Urine RBC 11-20 /HPF (0-2) Urine WBC Rare /HPF (0-4) Urine Squamous Epithelial Cells Many /LPF Urine Bacteria Few /HPF (0-FEW) Urine Mucus Marked /LPF Urine Opiates Screen Neg (NEG) Urine Methadone Screen Neg (NEG) Urine Barbiturates Neg (NEG) Urine Phencyclidine Screen Neg (NEG) Urine Amphetamine/Methamphetamine Neg (NEG) Urine Benzodiazepines Screen Neg (NEG) Urine Cocaine Screen Neg (NEG) Urine Cannabinoids Screen Pos (NEG) Urine Ethyl Alcohol Neg (NEG) VTE Prophylaxis Ordered VTE Prophylaxis Devices: No VTE Pharmacological Prophylaxi: No Assessment/Plan Assessment/Plan A: Vaginal bleeding Possible ectopic P: Pt. left AMA. KIKI WEST Jr, MD Jan 09, 2019 17:54
== END 2019-01-09 17:28 | disposition left against medical advice (07) ==
LOC: ER 13:19 → UNDOADMIN 16:44 → 3 NORTH 16:44
DX: O00.80 Other ectopic pregnancy without intrauterine pregnancy (principal); Z3A.00 Weeks of gestation of pregnancy not specified
CPT/HCPCS: 36415; 76801; 76817; 80053; 80307; 81001; 84702; 85025; 86850; 86900; 86901; 96374; 99284; G0480; J2001; J2270; J2704; J3010; J7030; J2590; J3490; 99285-25

== ENCOUNTER 2020-12-04 09:31 | Emergency (ER) | payer SELFPAY ==
[~2020-12-04] VITALS: Ht 162.6 cm; Wt 72.0 kg
--- NOTE | 2020-12-04 10:36 | PHYS DOC ---
Past Medical History Past Medical History: Other Additional Past Medical Histor: ovarian cyst/possible ectopic Past Surgical History: Tubal ligation Additional Past Surgical Histo: "tubal ligation failed" Smoking Status: Never Smoker Alcohol Use: None Drug Use: None General Adult EDM: Chief Complaint: Evaluate for HPI: HPI: Patient is a 30 year old female who presented to ER for evaluation of . Patient states she tested positive for on November 11, and on November 22 she had heavy vaginal bleeding with blood clots and some abdominal cramping. Patient thought that she had a miscarriage, did not seek medical attention. Since she had not have any pelvic pain, no vaginal bleeding. Today she did a test at home and it came back positive so she came here to make sure that she is or not. Her blood type is B+. Patient denies any symptoms at this time. 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 Review of Systems: Review of Systems: Constitutional: Denies fever or chills. [] Eyes: Denies change in visual acuity. [] HENT: Denies nasal congestion or sore throat. [] Respiratory: Denies cough or shortness of breath. [] Cardiovascular: Denies chest pain or edema. [] GI: Denies abdominal pain, nausea, vomiting, bloody stools or diarrhea. [] : Denies dysuria. No pelvic pain, no vaginal bleeding or discharge. Musculoskeletal: Denies back pain or joint pain. [] Integument: Denies rash. [] Neurologic: Denies headache, focal weakness or sensory changes. [] Endocrine: Denies polyuria or polydipsia. [] Lymphatic: Denies swollen glands. [] Psychiatric: Denies depression or anxiety. [] Heart Score: Risk Factors: Risk Factors: DM, Current or recent (<one month) smoker, HTN, HLP, family history of CAD, obesity. Risk Scores: Score 0 - 3: 2.5% MACE over next 6 weeks - Discharge Home Score 4 - 6: 20.3% MACE over next 6 weeks - Admit for Clinical Observation Score 7 - 10: 72.7% MACE over next 6 weeks - Early Invasive Strategies Allergies: Allergies: Allergies Coded Allergies Type Severity Reaction Last Updated Verified No Known Drug Allergies 09/21/13 No Physical Exam: PE: Constitutional: Well developed, well nourished, no acute distress, non-toxic appearance. [] HENT: Normocephalic, atraumatic, bilateral external ears normal, oropharynx moist, no oral exudates, nose normal. [] Eyes: PERRLA, EOMI, conjunctiva normal, no discharge. [] Neck: Normal range of motion, no tenderness, supple, no stridor. [] Cardiovascular:Heart rate regular rhythm, no murmur [] Lungs & Thorax: Bilateral breath sounds clear to auscultation [] Abdomen: Bowel sounds normal, soft, no tenderness, no masses, no pulsatile masses. [] Skin: Warm, dry, no erythema, no rash. [] Back: No tenderness, no CVA tenderness. [] Extremities: No tenderness, no cyanosis, no clubbing, ROM intact, no edema. [] Neurologic: Alert and oriented X 3, normal motor function, normal sensory function, no focal deficits noted. [] Psychologic: Affect normal, judgement normal, mood normal. [] Current Patient Data: Labs: Laboratory Tests Test 12/04/20 09:44 POC Urine HCG, Qualitative Borderline hcg level Vital Signs: Vital Signs Date Time Temp Pulse Resp B/P (MAP) Pulse Ox O2 Delivery O2 Flow Rate FiO2 12/04/20 09:38 98.7 110 16 115/58 (77) 98 Room Air 98.7 EKG: EKG: [] Radiology/Procedures: Radiology/Procedures: [] Course & Med Decision Making: Course & Med Decision Making Pertinent Labs and Imaging studies reviewed. (See chart for details) Patient's hCG level today 39, it is suspected that she had a miscarry and her hCG level trending down. Since she had no symptoms today, no pelvic pain, no vaginal bleeding or discharge, no further work-up needed at this time. Patient will be discharged home, she will need to follow-up with her doctor for recheck her hCG level in a couple days to make sure it is zero out. Patient is amenable to plan of care Elvis Disclaimer: Elvis Disclaimer: This electronic medical record was generated, in whole or in part, using a voice recognition dictation system. Departure Departure Impression: Primary Impression: Miscarriage Disposition: 01 DC HOME SELF CARE/HOMELESS Condition: STABLE Referrals: NO PCP (PCP) Follow-up with your doctor in 2 days to have your hCG level rechecked. Patient Instructions: Miscarriage SALINAS,PETER T DO Dec 04, 2020 10:36
[2020-12-04 10:45] VITALS: BP 103/59
== END 2020-12-04 11:19 | disposition home or self-care (01) ==
LOC: ER 09:31
DX: O03.9 Complete or unspecified spontaneous abortion without complication (principal); Z98.51 Tubal ligation status; Z3A.00 Weeks of gestation of pregnancy not specified
CPT/HCPCS: 36415; 81025; 84702; 99283

== ENCOUNTER 2020-12-26 00:05 | Emergency (ER) | payer SELFPAY ==
[~2020-12-26] VITALS: Ht 162.6 cm; Wt 68.0 kg
[2020-12-26] MEDS ORDERED: ONDANSETRON PF 4 MG/2 ML VIAL. ONE (00:20)
[2020-12-26 00:43] LABS: BASO % 1 % (0-3); EOS # 0.3 x10^3/uL (0.0-0.7); EOS % 4 % (0-3); HEMATOCRIT 35.5 % (36.0-47.0); HEMOGLOBIN 12.5 g/dL (12.0-15.5); LYMPH # 2.9 x10^3/uL (1.0-4.8); LYMPH % 35 % (24-48); MEAN CORPUSCULAR HEMOGLOBIN 35 pg (25-35); MEAN CORPUSCULAR HGB CONC 35 g/dL (31-37); MEAN CORPUSCULAR VOLUME 99 fL (79-100); MONO # 0.5 x10^3/uL (0.0-1.1); MONO % 6 % (0-9); NEUT # 4.5 x10^3/uL (1.8-7.7); NEUT % 55 % (31-73); PLATELET COUNT 209 x10^3/uL (140-400); RED BLOOD COUNT 3.57 x10^6/uL (3.50-5.40); RED CELL DISTRIBUTION WIDTH 12.5 % (11.5-14.5); WHITE BLOOD COUNT 8.3 x10^3/uL (4.0-11.0)
[2020-12-26 00:54] LABS: BILIRUBIN,URINE NEGATIVE (NEG); CLARITY,URINE CLEAR; COLOR,URINE AMBER; NITRITE,URINE NEGATIVE (NEG); PROTEIN,URINE NEGATIVE (NEG-TRACE)
[2020-12-26] MEDS ORDERED: MORPHINE SULFATE 10 MG/ML VIAL. IV ONE (01:00)
[2020-12-26] MEDS ORDERED: IV NORMAL SALINE 1000ML BAG 1,000 ML IV ONE (01:00)
[2020-12-26] MEDS ORDERED: ONDANSETRON PF 4 MG/2 ML VIAL. IVP ONE (01:00)
[2020-12-26 01:04] LABS: BACTERIA,URINE 0 /HPF (0-FEW); RBC,URINE 0 /HPF (0-2); WBC,URINE OCC /HPF (0-4)
[2020-12-26 01:05] LABS: CALCIUM 8.2 mg/dL (8.5-10.1); CREATININE 0.7 mg/dL (0.6-1.0); GFR 98.3; POTASSIUM 3.2 mmol/L (3.5-5.1); PREG TEST PT QUAL POSITIVE (NEG)
[2020-12-26 01:12] LABS: ALBUMIN 3.3 g/dL (3.4-5.0); ALBUMIN/GLOBULIN RATIO 1.1 (1.0-1.7); TOTAL BILIRUBIN 0.3 mg/dL (0.2-1.0); TOTAL PROTEIN 6.3 g/dL (6.4-8.2)
--- NOTE | 2020-12-26 01:33 | RAD ---
Obstetric transvaginal ultrasound less than 14 weeks HISTORY: Severe abdominal pain, . FINDINGS: Transabdominal sonography demonstrates anteverted uterus measuring 8.7 x 4.7 x 5.7 cm. No i ntrauterine gestational sac documented. Ovaries not visualized transabdominal. Transvaginal sonography demonstrates anteverted uterus. Endometrium thickness 1.2 cm. No intrauterine gestational sac. No uterine masses. Right ovary measures 2.1 x 3.2 x 2.5 cm, has a couple of subcent imeter follicles, and intact blood flow. Left ovary poorly visualized, there is a structure labeled a s left ovary measured as 2.1 x 3.2 x 2.6 cm which is significantly obscured by shadowing from surroun ding pelvic bowel loops, this demonstrates intact blood flow. No adnexal masses documented. Small vol ume of simple free fluid in the cul-de-sac and surrounding the uterine fundus. IMPRESSION: No intrauterine evident. Correlate with quantitative hCG. Small leiomyoma simpl e pelvic fluid. Electronically signed by: Dominick Kennedy MD (12/26/2020 1:31 AM) [facility]
--- NOTE | 2020-12-26 02:07 | ED.ADGEN ---
Past Medical History Past Medical History: Other Additional Past Medical Histor: ovarian cyst/possible ectopic Past Surgical History: Tubal ligation Additional Past Surgical Histo: "tubal ligation failed" Smoking Status: Never Smoker Alcohol Use: None Drug Use: None General Adult EDM: Chief Complaint: ABDOMINAL PAIN HPI: HPI: Patient is a 30-year-old female presents to the emergency room complaining of right pelvic pain that started about 2 hours prior to arrival. Patient states is been constant since then and feels like a crampy sharp pain. She states it feels very similar to when she had an ectopic several years ago. She states that she initially had several episodes of vomiting but has not had any vomiting since that time. She denies any diarrhea or constipation. She has not had any known fevers. [place] [facility] [place] and at that time had a beta-hCG in the 300s. She was here at the beginning of the month and at that time had a beta-hCG of 39 and it was thought that she had had a miscarriage. Patient has not had an ultrasound with this . She has not had any difficulty with eating or drinking. Review of Systems: Review of Systems: Complete ROS is negative unless otherwise documented in HPI Current Medications: Current Medications Medications (Trade) Dose Ordered Sig/Norm Start Time Stop Time Status Last Admin Dose Admin Morphine Sulfate (Morphine Sulfate) 5 mg 1X ONCE 12/26/20 01:00 12/26/20 01:01 DC 12/26/20 00:59 5 MG Ondansetron HCl (Zofran) 4 mg STK-MED ONCE 12/26/20 00:20 12/26/20 00:21 DC Oxycodone/ Acetaminophen (Percocet 5/325) 1 tab 1X ONCE 12/26/20 02:30 12/26/20 02:31 DC 12/26/20 02:23 1 TAB Sodium Chloride 1,000 ml @ 1,000 mls/hr 1X ONCE 12/26/20 01:00 12/26/20 01:59 DC 12/26/20 00:25 1,000 MLS/HR Allergies: Allergies: Allergies Coded Allergies Type Severity Reaction Last Updated Verified No Known Drug Allergies 09/21/13 No Physical Exam: PE: General: Awake, alert, distressed. Well Nourished, well hydrated. Cooperative HEENT: Atraumatic, EOMI, PERRL, airway patent, moist oral mucosa Neck: Supple, trachea midline Respiratory: CTA bilaterally, normal effort, no wheezing/crackles CV: RRR, no murmur, cap refill <2 GI: Soft, nondistended, right lower quadrant tenderness, no masses MSK: No obvious deformities Skin: Warm, dry, intact Neuro: A&O x3, speech NL, sensory and motor grossly intact, no focal deficits Psych: Normal affect, normal mood, not suicidal or homicidal Current Patient Data: Labs: Laboratory Tests Test 12/26/20 00:30 12/26/20 00:47 12/26/20 00:48 White Blood Count 8.3 x10^3/uL (4.0-11.0) Red Blood Count 3.57 x10^6/uL (3.50-5.40) Hemoglobin 12.5 g/dL (12.0-15.5) Hematocrit 35.5 % (36.0-47.0) L Mean Corpuscular Volume 99 fL (79-100) Mean Corpuscular Hemoglobin 35 pg (25-35) Mean Corpuscular Hemoglobin Concent 35 g/dL (31-37) Red Cell Distribution Width 12.5 % (11.5-14.5) Platelet Count 209 x10^3/uL (140-400) Neutrophils (%) (Auto) 55 % (31-73) Lymphocytes (%) (Auto) 35 % (24-48) Monocytes (%) (Auto) 6 % (0-9) Eosinophils (%) (Auto) 4 % (0-3) H Basophils (%) (Auto) 1 % (0-3) Neutrophils # (Auto) 4.5 x10^3/uL (1.8-7.7) Lymphocytes # (Auto) 2.9 x10^3/uL (1.0-4.8) Monocytes # (Auto) 0.5 x10^3/uL (0.0-1.1) Eosinophils # (Auto) 0.3 x10^3/uL (0.0-0.7) Basophils # (Auto) 0.0 x10^3/uL (0.0-0.2) Maternal Serum HCG Beta Subunit 167 mIU/mL (0-5) H Sodium Level 139 mmol/L (136-145) Potassium Level 3.2 mmol/L (3.5-5.1) L Chloride Level 106 mmol/L (98-107) Carbon Dioxide Level 28 mmol/L (21-32) Anion Gap 5 (6-14) L Blood Urea Nitrogen 6 mg/dL (7-20) L Creatinine 0.7 mg/dL (0.6-1.0) Estimated GFR (Cockcroft-Gault) 98.3 BUN/Creatinine Ratio 9 (6-20) Glucose Level 104 mg/dL (70-99) H Calcium Level 8.2 mg/dL (8.5-10.1) L Total Bilirubin 0.3 mg/dL (0.2-1.0) Aspartate Amino Transferase (AST) 10 U/L (15-37) L Alanine Aminotransferase (ALT) 11 U/L (14-59) L Alkaline Phosphatase 65 U/L (46-116) Total Protein 6.3 g/dL (6.4-8.2) L Albumin 3.3 g/dL (3.4-5.0) L Albumin/Globulin Ratio 1.1 (1.0-1.7) Lipase 85 U/L (73-393) Serum Test, Qualitative Positive (NEG) POC Urine HCG, Qualitative Hcg positive (Negative) Urine Collection Type U cath Urine Color Paige Urine Clarity Clear Urine pH 6.0 (<5.0-8.0) Urine Specific [place] 1.025 (1.000-1.030) Urine Protein Negative mg/dL (NEG-TRACE) Urine Glucose (UA) Negative mg/dL (NEG) Urine Ketones (Stick) Negative mg/dL (NEG) Urine Blood Negative (NEG) Urine Nitrite Negative (NEG) Urine Bilirubin Negative (NEG) Urine Urobilinogen Dipstick 1.0 mg/dL (0.2 mg/dL) Urine Leukocyte Esterase Negative (NEG) Urine RBC 0 /HPF (0-2) Urine WBC Occ /HPF (0-4) Urine Squamous Epithelial Cells Few /LPF Urine Bacteria 0 /HPF (0-FEW) Urine Mucus Mod /LPF Laboratory Tests 12/26/20 00:30 Laboratory Tests 12/26/20 00:30 Vital Signs: Vital Signs Date Time Temp Pulse Resp B/P (MAP) Pulse Ox O2 Delivery O2 Flow Rate FiO2 12/26/20 02:23 16 100 3/25/21 02:09 77 118/56 (76) Room Air 12/26/20 00:15 98.1 98.1 EKG: EKG: [] Heart Score: C/O Chest Pain: N/A Risk Factors: Risk Factors: DM, Current or recent (<one month) smoker, HTN, HLP, family history of CAD, obesity. Risk Scores: Score 0 - 3: 2.5% MACE over next 6 weeks - Discharge Home Score 4 - 6: 20.3% MACE over next 6 weeks - Admit for Clinical Observation Score 7 - 10: 72.7% MACE over next 6 weeks - Early Invasive Strategies Radiology/Procedures: Radiology/Procedures: [] Course & Med Decision Making: Course & Med Decision Making Pertinent Labs and Imaging studies reviewed. (See chart for details) Patient is a 30-year-old female who presents to the emergency room complaining of right pelvic pain. test is positive at this time. She has had 1 previous ectopic where she had to have methotrexate. Upon review of her records she also had another episode where her beta hCG levels stayed in the low 100s and it was recommended that she have surgery to evaluate for possible ectopic and patient refused. She did not get methotrexate at that time and it is unclear whether she received any further treatment after leaving [facility]. Patient's abdomen is soft and tender in the right pelvic area. She is hemodynamically stable. She is afebrile and has not had any vomiting here in the emergency room She was given Zofran and pain medicine. Shortly afterwards she asked for additional pain medicine. Ultrasound was done which does not show signs of an ectopic or an intrauterine . She does have a small amount of simple fluid in the pelvis. Her right ovary was well visualized without an obvious ectopic and shows good blood flow ruling out torsion. Patient does not have an increased white blood cell count. She cannot have a CT at this time given her . I have discussed with the patient symptoms of appendicitis, ovarian torsion, ectopic and we have discussed when to return to the emergency room. She has a appointment with [facility] today. I have discussed with her that she should keep that appointment. We have discussed that if her pain continues to get worse she should return to the emergency room. Patient's test results and vitals while in the ED were fully reviewed and discussed with the patient. Patient is stable and at this time does not need admission to the hospital. We have discussed strict return precautions and the importance of following up with their Primary Care Physician. Patient stated understanding and was given an opportunity to ask any questions. Patient is in agreement with plan. Elvis Disclaimer: Elvis Disclaimer: This electronic medical record was generated, in whole or in part, using a voice recognition dictation system. Departure Departure Impression: Primary Impression: Abdominal pain affecting Disposition: 01 DC HOME SELF CARE/HOMELESS Condition: STABLE Referrals: NO PCP (PCP) Patient Instructions: Abdominal Pain During BRISEIDA BARBER MD Dec 26, 2020 02:07
[2020-12-26 02:09] VITALS: BP 118/56
[2020-12-26] MEDS ORDERED: oxyCODONE/APAP 5/325 1 TAB TABLET PO ONE (02:30)
== END 2020-12-26 02:35 | disposition home or self-care (01) ==
LOC: ER 00:05
DX: O26.891 Other specified pregnancy related conditions, first trimester (principal); R10.31 Right lower quadrant pain; O21.9 Vomiting of pregnancy, unspecified; Z98.51 Tubal ligation status; Z3A.01 Less than 8 weeks gestation of pregnancy
CPT/HCPCS: 36415; 76801; 76817; 80053; 81001; 81025; 83690; 84702; 84703; 85025; 96361; 96374; 96375; 99285; J2270; J2405; J7030

== ENCOUNTER 2021-03-02 14:21 | Emergency (ER) | payer OTHER | END 2021-03-02 15:51 | disposition left against medical advice (07) | LOC: ER 14:21 | DX: T14.8XXA Other injury of unspecified body region, initial encounter (principal); Z53.21 Procedure and treatment not carried out due to patient leaving prior to being seen by health care provider; W50.3XXA Accidental bite by another person, initial encounter; Y93.89 Activity, other specified; Y92.89 Other specified places as the place of occurrence of the external cause; Y99.8 Other external cause status ==

== ENCOUNTER → 2021-03-31 | Outpatient (CLI) | payer OTHER ==
[~2021-03-31] MED LIST: CONTRAST GIVEN. MC PRN; IOHEXOL 300 MG/ML 50 ML VIAL. IJ ONE; IOHEXOL 300 MG/ML 50 ML VIAL. ONE
--- NOTE | 2021-03-31 14:46 | RAD ---
EXAM: Hysterosalpingogram. HISTORY: 31-year-old female with a history of multiple live births and subsequent tubal ligation pres ents for evaluation due to multiple miscarriages. There is a suspected persistent patent fallopian tu be based on a hysterosalpingogram performed in 2017 at an outside facility. TECHNIQUE: The procedure was discussed with the patient and written and consent was obtained. A timeo ut was performed. A vaginal speculum was placed in the cervix is identified and cleansed with Betadin e. A balloon tip catheter was then advanced into the uterine cavity and the balloon was inflated. Georgina er-soluble contrast was hand injected into the uterine cavity and images were obtained in multiple pr ojections. The catheter and speculum were removed. The patient tolerated the procedure without compli cation. 8 fluoroscopic images were obtained for total cross be time of 1.2 minutes. FINDINGS: There is contrast opacification of a normal configuration uterine cavity. There is no evide nce of a uterine lesion. There is contrast opacification of the bilateral fallopian tubes and minimal delayed spillage of contrast from the right fallopian tube into the peritoneal cavity. There is no s pillage of contrast from the left fallopian tube. IMPRESSION: 1. Suspected minimal delayed spillage of contrast from the right fallopian tube. Attempts to increase right fallopian tube spillage were limited due to leakage of contrast from the uterine cavity into t he vagina. 2. Contrast opacification of the left fallopian tube without spillage into the peritoneal cavity. 3. Normal uterine configuration. Electronically signed by: Danae Strange MD (03/31/2021 2:44 PM) [id number]
== END | disposition home or self-care (01) ==
LOC: RAD 09:32
PROVIDERS: ATTEND Obstetrics & Gynecology
DX: Z30.9 Encounter for contraceptive management, unspecified (principal); N97.0 Female infertility associated with anovulation; Z79.899 Other long term (current) drug therapy; Z98.890 Other specified postprocedural states
CPT/HCPCS: 36415; 58340; 74740; 84702